=== PATIENT | male | born 2005 | race Caucasian/White ===

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

== ENCOUNTER 2025-02-23 12:22 | Emergency (ER) | payer OTHER, SELFPAY ==
--- NOTE | ~2025-02-23 | XR_ITS ---
Clinical Indication: Cough PA and lateral views of the chest: Comparison: 09/21/2020 Findings: The lungs are clear, without evidence of focal consolidation or pleural effusion. Cardiome diastinal silhouette is within normal limits. Bones and soft tissues are unremarkable. Impression: Normal chest. Reviewed, dictated and finalized at [facility]. Impression: Normal chest.
[2025-02-23 12:30] VITALS: O2SAT 99
[2025-02-23 12:33] VITALS: BP 134/77; PULSE 64; RESP 18; TEMP 36.5; O2SAT 100
--- NOTE | 2025-02-23 12:57 | ED_ITS ---
HPI - URI/Sore Throat General Chief Complaint: Upper Respiratory Infection Stated Complaint: chest congestion, cough Source: patient Mode of arrival: ambulatory Limitations: no limitations History of Present Illness HPI Narrative: 20-year-old male presents Express Care complaining of cough and congestion for 3 months. Patient states symptoms have not gotten any better. Patient has not been doing [id number] to help with treatment. She reports coughing up green-yellow sputum and having nasal discharge. Patient denies any fevers, chills, body aches, sore throat, or any other upper respiratory symptoms. She reports a lot of sinus pressure as well. Patient reports his cough is worse when he is exercising has a hard time exercising due to the cough. Patient denies any shortness of breath or chest pain. Patient reports he smokes weed and vapes frequently. Related Data Allergies Allergy/AdvReac Type Severity Reaction Status Date / Time No Known Allergies Allergy Verified 02/23/25 12:36 Review of Systems Review of Systems: CONSTITUTIONAL: Denies fever, chills, body aches, or sweats. EYES: Denies visual changes, redness, or discharge. ENT: Negative for rhinorrhea, sore throat, or otalgia. Positive for congestion. CARDIOVASCULAR: Denies chest pain, palpitations, or edema. RESPIRATORY: Positive for cough. Negative for dyspnea. GASTROINTESTINAL: Denies abdominal pain, nausea, vomiting, or diarrhea. GENITOURINARY: Denies dysuria or hematuria. SKIN: Denies rash or itching. MUSCULOSKELETAL: Denies back pain, joint pain, or myalgia. NEUROLOGIC: Denies headache, numbness, or weakness. PSYCHIATRIC: Denies anxiety or depression. All other systems reviewed are negative, except as documented in HPI. [facility] Past Medical History Medical History (Updated 02/23/25 @ 13:20 by Yevgeniy Bha APRN) No pertinent family history Eczema Fracture of fifth toe, right, closed Asthma Seasonal allergies Surgical History Surgical History No significant past surgical history Social History Social History Smoking status: Never smoker Alcohol intake: never Living arrangements: with family Occupation/Education: student Comments At the time of my signature, I reviewed and agree with the nursing past medical, surgical, social, and family history. There is no relevant family history pertinent to the patient complaint. Exam Narrative: GENERAL: This is a well-nourished, well-developed adult, in no apparent distress. They are non ill-appearing, nontoxic appearing. HEAD: normocephalic, atraumatic. EYES: Sclera clear/white. Vision is grossly intact. Conjunctiva normal bilaterally. Extraocular movements intact. EARS: External ears normal, auditory canals clear and without drainage, TMs without erythema or perforation. Hearing grossly intact. NOSE: External nose normal with no obvious nasal discharge, nasal turbinates er ythematous with thick yellow discharge present. THROAT: Mucous membranes moist, posterior pharynx without redness or swelling. No exudate. Uvula is midline. Postnasal drip present. NECK: Neck supple, non-tender without lymphadenopathy, masses or thyromegaly. CARDIOVASCULAR: Regular rate and rhythm without murmurs, gallops, or rubs. RESPIRATORY: Clear to auscultation. Breath sounds equal bilaterally. No wheezes, rales, or rhonchi. SKIN: warm, Dry, intact with no suspicious lesions or rash, good texture and turgor. NEURO: awake, alert, and oriented to person, place and time. There were no obvious focal neurologic abnormalities. EXTREMITIES: No joint tenderness, effusion, or edema noted. BACK: Nontender without deformity. Course Course Emergency Course: Portions of this record may have been created with voice recognition software Level of Care: Express Care Visit Vital Signs Vital signs: Vital Signs Pulse Oximetry 99 02/23/25 12:30 Oxygen Delivery Room Air 02/23/25 12:30 Temperature 97.7 F 02/23/25 12:33 Pulse Rate 64 02/23/25 12:33 Respiratory Rate 18 02/23/25 12:33 Blood Pressure 134/77 02/23/25 12:33 Pulse Oximetry 100 02/23/25 12:33 Oxygen Delivery Room Air 02/23/25 12:30 MDM - URI/Sore Throat MDM Narrative Medical decision making narrative: Chest x-ray is normal without any evidence pneumonia or any acute findings. Patient likely has a chronic sinusitis given length of symptoms. Will treat empirically with Augmentin for 2 weeks. Will also prescribe Flonase for congestion. Advised patient to stop smoking weed and vaping. Also prescribe a course of prednisone for bronchitis due to prolonged cough and history of smoking. Discussed physical exam findings. Advised supportive measures and signs/symptoms to go to the ER. Pt is appropriate for outpt treatment and f/u. Differential Diagnosis Differential diagnosis: Likely sinusitis, bronchitis and other (Pneumonia) Imaging Data Radiologist's impression: ITS Impressions Chest X-Ray 02/23/25 13:13 Impression: Normal chest. Discharge Plan Discharge Clinical Impression: Sinusitis Qualifiers: Sinusitis location: unspecified location Chronicity: chronic Qualified Code(s): J32.9 - Chronic sinusitis, unspecified Patient Disposition: Home Condition: Stable Instructions: Antibiotic Form, Sinusitis (ED) Additional Instructions: Take the antibiotics as directed and complete the course even if you start to feel better. Take the prednisone as directed. In the morning with food. You may use a Neti pot saline rinse 3 times a day with lukewarm distilled water Continue to take Tylenol or Motrin for pain. Use a humidifier or vaporizer at night. Drink plenty of water. 8-10 glasses per day. Use flonase 2 times per day for 5 days then as needed Take mucinex 2 times per day and be sure to take with 8oz of water. Follow up with Primary provider in 3-5 days Please go to the ER if he develops any difficulty breathing, worsening symptoms, or any other concerns Patient Language: Montserratian Prescriptions: New prednisone 20 mg tablet 40 mg PO DAILY 5 Days Qty: 10 0RF fluticasone propionate [Flonase Allergy Relief] 50 mcg/actuation spray,suspension 2 spray intranasal DAILY 30 Days Qty: 1 0RF Rx Instructions: administer into each nostril amoxicillin-pot clavulanate 875-125 mg tablet 1 tablet PO Q12H 14 Days Qty: 28 0RF Follow-up/Referrals: Tracee Bruno MD [Primary Care Provider] - Time of Disposition: 13:20
== END 2025-02-23 13:25 | disposition home or self-care (01) ==
PROVIDERS: PCP Family Medicine
DX: J32.9 Chronic sinusitis, unspecified (principal); J45.909 Unspecified asthma, uncomplicated; F17.290 Nicotine dependence, other tobacco product, uncomplicated; F12.90 Cannabis use, unspecified, uncomplicated
CPT/HCPCS: 71046; 99213; G0463